=== PATIENT | male | born 1955 | race Caucasian/White ===

== ENCOUNTER 2020-11-16 07:42 | Day surgery (SDC) | payer MEDICARE ==
[~2020-11-16] VITALS: Ht 170.2 cm; Wt 72.0 kg
[~2020-11-16 07:42] MED LIST: Advil200 M1 PO; Desyrel50 MG; HARVONI 90-4001 EAC1 PO; IBUP200 PO; MELA3 PO; MULVITA PO; Pepto-Bismol262 MG PO; TAMS.4ER PO; VARE1 PO; VITAMIN D310 MC4 PO
== END 2020-11-16 10:30 | disposition home or self-care (01) ==
LOC: ORSCSDS 07:42
PROVIDERS: Internal Medicine Gastroenterology
PROC: 0DJD8ZZ Inspection of Lower Intestinal Tract, Via Natural or Artificial Opening Endoscopic (ICD-10-PCS; principal; 2020-11-16 09:00)
DX: Z12.11 Encounter for screening for malignant neoplasm of colon (principal); Z86.010 Personal history of colon polyps; K57.30 Diverticulosis of large intestine without perforation or abscess without bleeding; Z86.19 Personal history of other infectious and parasitic diseases; F17.210 Nicotine dependence, cigarettes, uncomplicated; Z79.899 Other long term (current) drug therapy
CPT/HCPCS: J2704; J7120